=== PATIENT | female | born 1945 | race Caucasian/White ===

== ENCOUNTER 2017-02-20 11:18 | Emergency (ER) | payer OTHER ==
[~2017-02-20] VITALS: Ht 160 cm; Wt 68.0 kg
[~2017-02-20 11:18] MED LIST: ALPHAGAN P10 ML OP; IBUPROFEN200 M1 PO; LISINOPRIL20 MG PO; LUMIGAN2.5 M1 OP; NEURONTIN 300300 M1 PO; THERA TEARS1 EACH OP; ZOCOR 20 MG TAB20 M1 PO; ZOCOR20 MG PO
[2017-02-20] MEDS ORDERED: RESTASIS1 EACH OPHTHALMIC (11:41)
[2017-02-20 13:07] LABS: ABSOLUTE NEUTROPHILS 4.3 thou/uL (1.4-8.2); BASOPHILS 1.1 % (0.0-2.0); EOSINOPHILS 2.4 % (0.0-3.0); HEMATOCRIT 40.4 % (37.0-47.0); HEMOGLOBIN 14.1 gm/dL (12.0-15.0); LYMPHOCYTES 33.3 % (24.0-44.0); MCH 31.5 pg (26.0-34.0); MCHC 34.9 g/dL (28.0-37.0); MONOCYTES 5.6 % (1.0-8.0); PLATELET COUNT 187 thou/uL (150-400); POLYS 57.6 % (36.0-66.0); RBC 4.49 mil/uL (4.20-5.00); RDW 13.2 % (10.5-14.5); WBC 7.4 thou/uL (4.0-11.0)
[2017-02-20 13:08] LABS: MANUAL DIFF NO
[2017-02-20 13:14] LABS: CALCIUM 9.4 mg/dL (8.5-10.1); CREATININE 0.7 mg/dL (0.6-1.0); POTASSIUM 4.4 mmol/L (3.5-5.1)
[2017-02-20] MEDS ORDERED: NAPROSYN500 MG PO (14:13)
[2017-02-20] MEDS ORDERED: ULTRAM 50MG TAB50 MG PO (14:13)
[2017-02-20] MEDS ORDERED: NEXIUM40 MG PO (14:34)
[2017-02-20 15:05] VITALS: BP 156/70
[2017-02-21] MEDS ORDERED: ZOFRAN ODT4 MG DISSOLVE (15:12)
[2017-02-21] MEDS ORDERED: FLEXERIL PO (15:12)
[2017-02-21] MEDS ORDERED: PROMS25 WY RECTAL (15:17)
[2017-02-22] MEDS ORDERED: NEURONTIN 300300 M1 PO (12:28)
== END 2017-02-20 15:09 | disposition home or self-care (01) ==
LOC: ER 11:18
PROVIDERS: Nurse Practitioner
DX: M48.06 Spinal stenosis, lumbar region (principal); Z90.710 Acquired absence of both cervix and uterus; Z90.49 Acquired absence of other specified parts of digestive tract; Z88.5 Allergy status to narcotic agent

== ENCOUNTER → 2017-02-22 | Outpatient (CLI) | payer OTHER ==
[~2017-02-22] VITALS: Ht 160 cm; Wt 71.3 kg
[~2017-02-22] MED LIST changes: +FLEXERIL PO; +NAPROSYN500 MG PO; +NEXIUM40 MG PO; +PROMS25 WY RECTAL; +RESTASIS1 EACH OPHTHALMIC; +ULTRAM 50MG TAB50 MG PO; +ZOFRAN ODT4 MG DISSOLVE
--- NOTE | ~2017-02-22 | HPC ---
[facility] [address] [place] [address] PAIN MANAGEMENT CONSULTATION Name: ANTOINETTE HELMS Room #: REG SU Rachel.#: [id number] Admission: 02/22/17 Attend Phys: Khurram Arce DO Discharge: Date of : 47 Report #: [id number] THIS REPORT FOR: //name// CC: Khurram Bansal DATE OF SERVICE: 02/22/2017 REFERRING PHYSICIAN: Khurram Borges DO CHIEF COMPLAINT: Low back pain, right lower extremity pain with paresthesias. HISTORY OF PRESENT ILLNESS: As you know, the patient is a 71-year-old female who has a longstanding history of low back pain, right lower extremity pain with paresthesias. She indicates pain is still dull aching, stabbing and shooting in sensation, exacerbated with activity, standing, bending, and walking, improves with repositioning and medications. The patient was seen in our clinic in 2008 for neck pain and upper extremity pain, but cannot undergo epidural injection due to wide-angle glaucoma. She has been lost followup visit since that time. She returns today in followup visit with pain level of 5/10 while sitting and 9/10 while walking. She has been recently referred to see neurosurgery for evaluation for possible cervical and lumbar surgery, but has also been referred back to our clinic to discuss the possibility of injection therapy. ALLERGIES: CODEINE. CURRENT MEDICATIONS: Promethazine, ondansetron, cyclobenzaprine, naproxen, tramadol, cyclosporine, simvastatin, lisinopril, and Lumigan. SOCIAL HISTORY: The patient denies tobacco, alcohol, IV or illicit drug use. She is accompanied by her son who is present in room today. IMAGING: No new imaging available. PHYSICAL EXAMINATION: VITAL SIGNS: Blood pressure 115/66, pulse 78, respiratory rate 16 and unlabored, the patient is 98% on room air, height 5 feet 3 inches tall, weight 157.2 pounds, and BMI calculated 27.9. GENERAL: Well-developed, well-nourished, well-hydrated 71-year-old female, appearing her stated age, placing current pain score approximately 5/10. HEENT: Normocephalic, atraumatic. Pupils are equal, round, and reactive to light. Extraocular muscles are intact. Sclerae nonicteric without injection. NEUROLOGIC: Cranial nerves 2-12 are grossly intact. Speech is fluent. The patient deemed a good historian. LUNGS: Clear. No wheeze, rhonchi, [place] [address] PAIN MANAGEMENT CONSULTATION Name: ANTOINETTE HELMS Room #: REG [facility] Adriana.Lisa.#: [id number] Admission: 02/22/17 Attend Phys: Khurram Arce DO Discharge: Date of : 47 Report #: [id number] CARDIOVASCULAR: Regular. No appreciable gallop or rub. ABDOMEN: Soft, normoactive bowel sounds. EXTREMITIES: Show no clubbing, no cyanosis, and no edema. MUSCULOSKELETAL: Seated straight leg raising negative. Supine straight leg raising positive right. Jv's test negative. Modified Gaenslen's positive for axial low back pain. Ankle clonus negative. Babinski is negative. Gait antalgic favoring right lower extremity over left. Muscle bulk and tone equal and symmetrical in lower extremities. Deep tendinous reflexes appear symmetrical at patella and Achilles. ASSESSMENT: 1. Symptomatic lumbar radiculopathy. 2. Lumbosacral spondylosis with radiculopathy. 3. Medication intolerance. 4. Chronic intractable pain. PLAN: 1. The patient has returned today in followup visit per the request of her primary care physician to discuss the possibility of undergoing epidural injections. I have once again had a very long discussion with the patient about open-angle or wide-angle glaucoma. She has been advised by her county supervisor to avoid steroid exposures. We would need to have her cleared to undergo epidural injection with 80 mg triamcinolone, any lesser dose will provide less than full efficacy. The patient will need to receive approval from her county supervisor to undergo the procedure understanding that the risks of the procedure itself does come with the possibility of increasing intraocular pressure with steroid exposure. Once she has clearance, we will move forward with scheduling first in the series of epidural injections. 2. The patient was advised that third [employer] payer restrictions require that authorization be obtained before we could have the patient undergo epidural injection. We will begin the authorization process immediately assuming she will have clearance to undergo the procedure from her ophthalmology standpoint. We will begin the process immediately and contact the patient once we have this authorization. The patient was advised that this will take anywhere from 4-7 working days, we will begin the process immediately in hopes of having the capability of undergoing the procedure at her next visit. 3. The patient will be started on gabapentin 300 mg 3 times a day, she will continue this for 3 days, then increase to 1 tab in the morning, 1 tab at noon, and 2 tabs at night for 3 nights, then 1 tab in the morning, 1 tab at noon and 3 tabs at night for 3 nights, then 2 tabs in the morning, 1 tab at noon and 3 tabs at night for 3 days, then 3 tabs in the morning, 1 tab at noon and 3 tabs at night for 3 days, then 3 tabs in the morning, 2 tabs at noon, 3 tabs at night for 3 nights, then 3 tabs 3 times a day. The patient will utilize this medication for neuropathic pain control, she has had no noted side effects to medication like she has with the opioid medications, no nausea, no dysphoric effects. We will begin the increase in medication and watch for any side [facility] [address] [place] [address] PAIN MANAGEMENT CONSULTATION Name: ANTOINETTE HELMS Room #: REG CLI Rachel.#: [id number] Admission: 02/22/17 Attend Phys: Khurram Arce DO Discharge: Date of : 47 Report #: [id number] effects. She was advised if anytime she notes side effects to contact our clinic, side effects should be somnolence, decreased mental acuity, disorientation, confusion, and rarely comes with any nausea. 4. We will see the patient back in followup visit once we received precertification for the patient to undergo epidural injection under fluoroscopic guidance assuming clearance from her ophthalmology team. <ELECTRONICALLY SIGNED> By: Khurram Arce DO 02/23/17 [id number] Khurram Arce DO /nt
[2017-02-22 11:26] VITALS: BP 115/66
== END | disposition home or self-care (01) ==
LOC: PAIN 07:14
DX: M54.16 Radiculopathy, lumbar region (principal); M47.27 Other spondylosis with radiculopathy, lumbosacral region; G89.29 Other chronic pain; Z79.899 Other long term (current) drug therapy; Z88.8 Allergy status to other drugs, medicaments and biological substances

== ENCOUNTER → 2017-06-22 | Outpatient (CLI) | payer OTHER | LOC: RAD 01:15 | DX: Z12.31 Encounter for screening mammogram for malignant neoplasm of breast (principal) ==

== ENCOUNTER → 2017-08-16 | Outpatient (CLI) | payer OTHER | LOC: NUC 08:34 | DX: K31.84 Gastroparesis (principal) ==

== ENCOUNTER → 2018-07-12 | Outpatient (CLI) | payer OTHER | LOC: RAD 04:16 | DX: Z12.31 Encounter for screening mammogram for malignant neoplasm of breast (principal) ==

== ENCOUNTER → 2019-08-06 | Outpatient (CLI) | payer OTHER | LOC: RAD 09:31 | DX: Z12.31 Encounter for screening mammogram for malignant neoplasm of breast (principal) ==